=== PATIENT | female | born 1950 | race Hispanic/Latino ===

== ENCOUNTER 2020-12-29 10:18 | Emergency (ER) | payer MEDICARE, OTHER ==
--- NOTE | 2020-12-29 11:00 | Emergency Department Report ---
ED General Adult HPI - General Chief complaint: High BP Stated complaint: BLOOD PRESSURE Time Seen by Provider: 12/29/20 10:32 Source: patient Mode of arrival: Ambulatory Limitations: No Limitations - History of Present Illness Initial comments: 70-year-old female with a past medical history of hypertension presents to the hospital complaining of elevated blood pressure readings for the last several days. Patient had a recent outpatient visit for arthritis and was told her blood pressure was high. From that point arm patient has been checking her blood pressures and her systolic pressure has been ranging from 160-180. Patient states typically her blood pressure is 120/70 however, it has been a long time since she has monitor her blood pressure at home. Patient has been taking lisinopril 10 mg daily for "a long time". She restarted hydroch lorothiazide 12.5 mg yesterday and actually too took 2 tablets (25 mg). At 8 AM this morning she has she took a total lisinopril 20 mg and hydrochlorothiazide 12.5 mg due to persistent elevated blood pressure. Patient denies headache, blurry vision, chest pain, shortness of breath, abdominal pain, neurologic deficit, or change in urine output. She called her doctor's office and was advised to come to the ER for evaluation. Patient has a follow-up visit with her doctor scheduled for next week. Severity scale (0 -10): 0 - Related Data Home Medications Medication Instructions Recorded Confirmed Last Taken RX: Acetylcysteine [Nac] 600 mg PO DAILY 09/18/15 12/29/20 Unknown RX: Aspirin [Aspirin BABY CHEW TAB] 81 mg PO DAILY 09/18/15 12/29/20 Unknown RX: Cholecalciferol (Vitamin D3) 1,000 unit PO DAILY 09/18/15 12/29/20 Unknown [Vitamin D3] RX: Folic Acid [Folvite] 1 mg PO DAILY 09/18/15 12/29/20 Unknown RX: Quetiapine Fumarate [Seroquel] 100 mg PO DAILY 09/18/15 12/29/20 Unknown RX: Sertraline [Zoloft] 100 mg PO DAILY 09/18/15 12/29/20 Unknown RX: Taurine [Pure Taurine] 500 mg PO DAILY 09/18/15 12/29/20 Unknown RX: lisinopriL [Zestril TAB] 10 mg PO DAILY 09/18/15 12/29/20 Unknown RX: Folic Acid [Folvite] 1 mg PO QDAY 10/29/15 12/29/20 Unknown RX: Niacin (Nf) 500 mg PO QHS 10/29/15 12/29/20 Unknown RX: Vitamin B Complex [Super B-50 1 each PO DAILY 10/29/15 12/29/20 Unknown Complex] RX: diphenhydrAMINE [Benadryl CAP] 25 mg PO Q8HR PRN 10/29/15 12/29/20 Unknown Previous Rx's Medication Instructions Recorded Last Taken Type Amoxicillin/K Clav Tab [Augmentin 1 tab PO Q12HR 7 Days tab 11/04/15 Unknown Rx 875 mg] RX: oxyCODONE /ACETAMINOPHEN 1 tab PO Q4H PRN #60 tablet 11/04/15 Unknown Rx [Percocet 5/325 mg] Amlodipine Besylate [Norvasc] 10 mg PO DAILY #60 tablet 12/29/20 Unknown Rx hydroCHLOROthiazide [Hctz] 12.5 mg PO QDAY #30 capsule 12/29/20 Unknown Rx Allergies Allergy/AdvReac Type Severity Reaction Status Date / Time No Known Allergies Allergy Unverified 09/18/15 18:13 ED Review of Systems ROS: Stated complaint: BLOOD PRESSURE Other details as noted in HPI Comment: All other systems reviewed and negative ED Past Medical Hx - Past Medical History Hx Hypertension: Yes (no meds since admission.) Hx Heart Attack/AMI: No Hx Deep Vein Thrombosis: No Hx Liver Disease: No Hx Renal Disease: No Hx Seizures: No Hx Asthma: No Additional medical history: Anxiety. Vertigo - Surgical History Hx Pacemaker: No Hx Internal Defibrillator: No Additional Surgical History: tonsils. sinus surgery - Social History Smoking Status: Unknown if ever smoked - Medications Home Medications: Home Medications Medication Instructions Recorded Confirmed Last Taken Type RX: Acetylcysteine [Nac] 600 mg PO DAILY 09/18/15 12/29/20 Unknown History RX: Aspirin [Aspirin BABY CHEW TAB] 81 mg PO DAILY 09/18/15 12/29/20 Unknown History RX: Cholecalciferol (Vitamin D3) 1,000 unit PO DAILY 09/18/15 12/29/20 Unknown H istory [Vitamin D3] RX: Folic Acid [Folvite] 1 mg PO DAILY 09/18/15 12/29/20 Unknown History RX: Quetiapine Fumarate [Seroquel] 100 mg PO DAILY 09/18/15 12/29/20 Unknown History RX: Sertraline [Zoloft] 100 mg PO DAILY 09/18/15 12/29/20 Unknown History RX: Taurine [Pure Taurine] 500 mg PO DAILY 09/18/15 12/29/20 Unknown History RX: lisinopriL [Zestril TAB] 10 mg PO DAILY 09/18/15 12/29/20 Unknown History RX: Folic Acid [Folvite] 1 mg PO QDAY 10/29/15 12/29/20 Unknown History RX: Niacin (Nf) 500 mg PO QHS 10/29/15 12/29/20 Unknown History RX: Vitamin B Complex [Super B-50 1 each PO DAILY 10/29/15 12/29/20 Unknown History Complex] RX: diphenhydrAMINE [Benadryl CAP] 25 mg PO Q8HR PRN 10/29/15 12/29/20 Unknown History Amoxicillin/K Clav Tab [Augmentin 1 tab PO Q12HR 7 Days tab 11/04/15 12/29/20 Unknown Rx 875 mg] RX: oxyCODONE /ACETAMINOPHEN 1 tab PO Q4H PRN #60 tablet 11/04/15 12/29/20 Unknown Rx [Percocet 5/325 mg] Amlodipine Besylate [Norvasc] 10 mg PO DAILY #60 tablet 12/29/20 Unknown Rx hydroCHLOROthiazide [Hctz] 12.5 mg PO QDAY #30 capsule 12/29/20 Unknown Rx ED Physical Exam - General Limitations: No Limitations - Other Other exam information: General: No acute distress Head: Atraumatic Eyes: normal appearance Neck: Normal appearance, no midline tenderness Chest: Clear to auscultation bilaterally CV: Regular rate and rhythm Abdomen: Soft, normal bowel sounds, nontender, nondistended, no rebound or guarding Back: Normal inspection Extremity: Normal inspection, full range of motion Neuro: Alert O x 3, no facial asymmetry, speech clear, no gross motor sensory deficit Psych: Appropriate behavior Skin: No rash ED Course Vital Signs 12/29/20 12/29/20 12/29/20 10:32 10:34 14:16 Temperature 98.8 F Pulse Rate 90 67 Respiratory 15 16 Rate Blood Pressure 174/86 Blood Pressure 186/93 [Right] O2 Sat by Pulse 100 Oximetry - Reevaluation(s) Reevaluation #1: 12/29/20 12:43 I went to review chart at this time noted that the nurse signed outpatient against medical ADvice at 12:03 PM. 12/29/20 12:47 I went by room and pt is still on monitor. BP 162/84 at 12:45 - Consultations Consultation #1: 12/29/20 13:36 Case discussed with warehouse coordinator Dr. Jimenez who advised to discontinue lisinopril secondary to hyperkalemia. Recommends Norvasc 10 mg in addition to hydrochlorothiazide 12.5 mg with PCP follow-up ED Medical Decision Making - Lab Data Result diagrams: 12/29/20 11:12 12/29/20 14:57 Lab Results 12/29/20 12/29/20 12/29/20 Range/Units 11:12 11:12 14:57 WBC 4.8 (4.5-11.0) K/mm3 RBC 4.04 (3.65-5.03) M/mm3 Hgb 13.0 (10.1-14.3) gm/dl Hct 38.6 (30.3-42.9) % MCV 96 (79-97) fl MCH 32 (28-32) pg MCHC 34 (30-34) % RDW 13.1 L (13.2-15.2) % Plt Count 251 (140-440) K/mm3 Lymph % (Auto) 28.3 (13.4-35.0) % [place] % (Auto) 7.3 (0.0-7.3) % Eos % (Auto) 5.6 H (0.0-4.3) % Baso % (Auto) 0.8 (0.0-1.8) % Lymph # (Auto) 1.4 (1.2-5.4) K/mm3 [place] # (Auto) 0.3 (0.0-0.8) K/mm3 Eos # (Auto) 0.3 (0.0-0.4) K/mm3 Baso # (Auto) 0.0 (0.0-0.1) K/mm3 Seg Neutrophils % 58.0 (40.0-70.0) % Seg Neutrophils # 2.8 (1.8-7.7) K/mm3 Sodium 143 (137-145) mmol/L Potassium 5.4 H 5.1 H (3.6-5.0) mmol/L Chloride 105.1 (98-107) mmol/L Carbon Dioxide 27 (22-30) mmol/L Anion Gap 16 mmol/L BUN 25 H (7-17) mg/dL Creatinine 0.8 (0.6-1.2) mg/dL Estimated GFR > 60 ml/min BUN/Creatinine Ratio 31 % Glucose 111 H (65-100) mg/dL Calcium 10.3 H (8.4-10.2) mg/dL - Medical Decision Making Patient has asymptomatic hypertension without signs of endorgan damage. Patient does have hypokalemia. Discussion with nephrology patient's BP medications will be changed. Patient will be discharged on milligrams and to continue hydrochlorothiazide. She did receive meds for hyperkalemia (Lasix and Kayexalate) in ED with reduction prior to discharge Critical Care Time: No Critical care attestation.: If time is entered above; I have spent that time in minutes in the direct care of this critically ill patient, excluding procedure time. ED Disposition Clinical Impression: Hypertension, Hyperkalemia Disposition: 01 HOME / SELF CARE / HOMELESS Is pt being admited?: No Does the pt Need Aspirin: No Condition: Stable Instructions: Hypertension (ED), Hyperkalemia, Hypertension, Adult Additional Instructions: Take the medication as prescribed. Follow-up with your doctor as scheduled. Return if symptoms worsen as indicated by your discharge instructions. Prescriptions: hydroCHLOROthiazide [Hctz] 12.5 mg PO QDAY #30 capsule Amlodipine Besylate [Norvasc] 10 mg PO DAILY #60 tablet Referrals: PRIMARY CARE, [Primary Care Provider] - 3-5 Days Time of Disposition: 15:30
[2020-12-29 11:47] LABS: Basophils % (Auto) 0.8 % (0.0-1.8); Eosinophils # (Auto) 0.3 K/mm3 (0.0-0.4); Eosinophils % (Auto) 5.6 % (0.0-4.3); Hematocrit 38.6 % (30.3-42.9); Lymphocytes # (Auto) 1.4 K/mm3 (1.2-5.4); Lymphocytes % (Auto) 28.3 % (13.4-35.0); Mean Corpuscular HGB Conc 34 % (30-34); Mean Corpuscular Volume 96 fl (79-97); Monocytes # (Auto) 0.3 K/mm3 (0.0-0.8); Monocytes % (Auto) 7.3 % (0.0-7.3); Platelet Count 251 K/mm3 (140-440); Red Blood Count 4.04 M/mm3 (3.65-5.03); Red Cell Distribution Width 13.1 % (13.2-15.2)
[2020-12-29 11:51] LABS: BUN/Creatinine Ratio 31; Blood Urea Nitrogen 25 mg/dL (7-17); Calcium 10.3 mg/dL (8.4-10.2); Hemolysis Index 7
[2020-12-29] MEDS ORDERED: FUROSEMIDE 20 MG TAB PO ONE (13:13)
[2020-12-29] MEDS ORDERED: amLODIPine 5 MG TAB PO ONE (13:35)
[2020-12-29] MEDS ORDERED: SODIUM POLYSTYRENE 15 GM/60 ML ORAL LIQD PO ONE (13:38)
[2020-12-29 15:57] VITALS: BP 158/74
== END 2020-12-29 15:57 | disposition home or self-care (01) ==
LOC: ED 10:18
DX: I10 Essential (primary) hypertension (principal); E87.5 Hyperkalemia; F41.9 Anxiety disorder, unspecified
CPT/HCPCS: 36415; 80048; 84132; 85025; 99283